=== PATIENT | female | born 1990 | race Caucasian/White ===

== ENCOUNTER 2018-07-23 13:43 | Emergency (ER) | END 2018-07-23 19:34 | disposition home or self-care (01) ==

== ENCOUNTER 2018-11-22 06:29 | Emergency (ER) | payer MEDICAID ==
[~2018-11-22] VITALS: Ht 157.5 cm; Wt 76.9 kg
[~2018-11-22 06:29] MED LIST: CEPH-443 PO; FERR325C PO; IBUP-1542 PO
[2018-11-22 06:35] VITALS: BP 156/91; PULSE 109; RESP 24; Ht 157.5 cm; Wt 76.9 kg
[2018-11-22] MEDS ORDERED: HYDROmorphONE 1 MG/ML SYG IV STA (07:28)
[2018-11-22] MEDS ORDERED: ONDANSETRON 4 MG INJ IV STA (07:28)
--- NOTE | 2018-11-22 07:29 | ERD ---
ER Documentation Chief Complaint Chief Complaint Pt reports gallbladder pain after spicey food HPI This is a 28-year-old female has a history of gallstones is complaining of a gallstone attack. She states that about 2 hours ago she developed some right upper quadrant pain that is described as crampy with radiation to the right alvarado k. She says this is exactly like prior gallstone intact has had many times before. She is nauseated but no vomiting and diarrhea no chest pain or shortness of breath ROS All systems reviewed and are negative except as per history of present illness. Medications Home Meds Discontinued Reported Medications Ferrous Sulfate (Iron) 325 Mg Capsr, 325 MG PO TID 04/09/12 Discontinued Scripts Ibuprofen* (Motrin*) 600 Mg Tab, 600 MG PO Q6, #15 TAB Prov:DONNA VELA MD 07/23/18 Cephalexin* (Keflex*) 500 Mg Capsule, 500 MG PO QID for 5 Days, CAP Prov:DONNA VELA MD 07/23/18 Allergies Allergies: Coded Allergies: No Known Drug Allergy (Verified Allergy, Unknown, NKDA, 11/22/18) PMhx/Soc History of Surgery: Yes (TUBAL LIGATION/GB) Anesthesia Reaction: No Hx Neurological Disorder: No Hx Respiratory Disorders: Yes (ASTHMA) Hx Cardiac Disorders: No Hx Psychiatric Problems: No Hx Miscellaneous Medical Probl: No Hx Alcohol Use: Yes (occasional) Hx Substance Use: No Hx Tobacco Use: No FmHx Family History: No coronary disease Physical Exam Vitals Vital Signs Date Temp Pulse Resp B/P (MAP) Pulse Ox O2 O2 Flow FiO2 Time Delivery Rate 11/22/18 98.3 109 24 156/91 100 06:35 (112) Physical Exam Const: Well-developed, well-nourished Head: Atraumatic, normocephalic Eyes: Normal Conjunctiva, PERRLA, EOMI, normal sclera, no nystagmus ENT: Normal External Ears, Nose and Mouth, moist mucus membranes. Neck: Full range of motion. No meningismus, no lymphadenopathy. Resp: Clear to auscultation bilaterally, no wheezing, rhonchi, rales Cardio: Regular rate and rhythm, no murmurs, S1 S2 present Abd: Soft, mild to moderate right upper quadrant tenderness, non distended. Normal bowel sounds, no guarding or rebound, no pulsitile abdominal masses or bruits Skin: No petechiae or rashes, no ecchymosis , no maculopapular rash Back: No midline or flank tenderness Ext: No cyanosis, or edema, FROM x 4, normal inspection, neurovascularly intact x 4 Neur: Awake and alert, STR 5/5 x 4, sensation intact x 4, no focal findings, cerebellum intact Psych: Normal Mood and Affect Result Diagram: 11/22/18 0740 11/22/18 0740 Results 24 hrs Laboratory Tests Test 11/22/18 06:56 11/22/18 07:40 POC Beta HCG, Qualitative NEGATIVE White Blood Count 9.9 10^3/ul Red Blood Count 4.08 10^6/ul Hemoglobin 11.6 g/dl Hematocrit 36.6 % Mean Corpuscular Volume 89.7 fl Mean Corpuscular Hemoglobin 28.4 pg Mean Corpuscular Hemoglobin Concent 31.7 g/dl Red Cell Distribution Width 13.4 % Platelet Count 347 10^3/UL Mean Platelet Volume 10.0 fl Immature Granulocytes % 0.300 % Neutrophils % 76.4 % Lymphocytes % 14.0 % Monocytes % 7.3 % Eosinophils % 1.6 % Basophils % 0.4 % Nucleated Red Blood Cells % 0.0 /100WBC Immature Granulocytes # 0.030 10^3/ul Neutrophils # 7.6 10^3/ul Lymphocytes # 1.4 10^3/ul Monocytes # 0.7 10^3/ul Eosinophils # 0.2 10^3/ul Basophils # 0.0 10^3/ul Nucleated Red Blood Cells # 0.0 10^3/ul Sodium Level 140 mmol/L Potassium Level 4.0 mmol/L Chloride Level 108 mmol/L Carbon Dioxide Level 23 mmol/L Anion Gap 9 Blood Urea Nitrogen 18 mg/dl Creatinine 0.63 mg/dl Est Glomerular Filtrat Rate mL/min > 60 mL/min Glucose Level 95 mg/dl Calcium Level 9.3 mg/dl Total Bilirubin 0.7 mg/dl Direct Bilirubin 0.00 mg/dl Indirect Bilirubin 0.7 mg/dl Aspartate Amino Transf (AST/SGOT) 16 IU/L Alanine Aminotransferase (ALT/SGPT) 16 IU/L Alkaline Phosphatase 71 IU/L Total Protein 7.8 g/dl Albumin 4.1 g/dl Globulin 3.70 g/dl Albumin/Globulin Ratio 1.10 Lipase 118 U/L Beta HCG, Quantitative < 2.4 mIU/ml Current Medications Medications Dose Sig/Jignesh Start Time Status Last (Trade) Ordered Route PRN Stop Time Admin Dose Reason Admin 1 mg ONCE STAT 11/22/18 DC 11/22/18 Hydromorphone IV 07:28 11/22/18 07:40 HCl 07:30 (Dilaudid) Ondansetron 4 mg ONCE STAT 11/22/18 DC 11/22/18 HCl (Zofran IV 07:28 11/22/18 07:40 Inj) 07:30 Ondansetron 4 mg STK-MED 11/22/18 DC HCl (Zofran ONCE ODT 07:37 11/22/18 Odt) 07:38 Procedures/MDM Patient: FLORIN MCMULLEN : 1990 Age: 28 Sex: F MR #: [id number] DOS: 11/22/18 0728 Ordering MD: BEULAH MORGAN DO Location: E/R Room/Bed: PROCEDURE: Ultrasound gallbladder CLINICAL INDICATION: abdominal pain TECHNIQUE: Subramanian scale, color flow and Doppler ultrasound images of the abdomen. COMPARISON: None FINDINGS: Pancreas: The head and body of the pancreas are unremarkable. Tail is obscured by shadowing bowel gas. Liver: Liver demonstrates normal size and echotexture. No parenchymal lesions are identified. Normal directional flow toward the liver is demonstrated in the main portal vein. Gallbladder: Not visualized. Biliary system: No significant dilatation of the intrahepatic or extrahepatic biliary system. Common bile duct measures 5 mm. Right Kidney: Measures 11.4 cm in length. No hydronephrosis, intrarenal calcification or parenchymal lesion. No visible perinephric fluid. Additional findings: None IMPRESSION: 1. The gallbladder is not visualized, question previous cholecystectomy. 2. Otherwise unremarkable ultrasound of the right upper abdomen. RPTAT: [facility] Physician Lelo Date Time Electronically viewed and signed by Physician Lelo on 11/22/2018 08:21 xB/ CC: BEULAH MORGAN DO [id number] Patient's pain is resolved after some pain meds and fluids. The patient is having some biliary colic symptoms she told me that she still had her gallbladder however is not seen on sonogram. She is got possibly drug-seeking behavior. Patient feels much better at this time, and vital signs are normal, symptoms have improved. I did give strict instructions to return to the ED if symptoms continue or worsen, patient will otherwise follow-up with primary care physician. Patient understood instructions and agreed to plan. Disclaimer: Inadvertent spelling and grammatical errors are likely due to EHR/dictation software use and do not reflect on the overall quality of patient care. Also, please note that the electronic time recorded on this note does not necessarily reflect the actual time of the patient encounter. Departure Diagnosis: Primary Impression: Abdominal pain Abdominal location: generalized Qualified Codes: R10.84 - Generalized abdominal pain Condition: Stable BEULAH MORGAN DO Nov 22, 2018 07:29
[2018-11-22] MEDS ORDERED: ONDANSETRON (ODT) 4 MG TAB ODT ONE (07:37)
[2018-11-22] MEDS ORDERED: HYDR-3980 PO (08:58)
[2018-11-22] MEDS ORDERED: DICY10CA40 PO (08:58)
== END 2018-11-22 09:32 | disposition home or self-care (01) ==
LOC: E/R 06:29
DX: R10.84 Generalized abdominal pain (principal); J45.909 Unspecified asthma, uncomplicated; R11.0 Nausea
CPT/HCPCS: 36415; 76705; 80053; 81025; 83690; 84702; 85025; 96374; 96375; J1170; J2405; Z7502; Z7610

== ENCOUNTER 2019-01-30 22:22 | Emergency (ER) | payer SELFPAY ==
[~2019-01-30] VITALS: Ht 157.5 cm; Wt 137.0 kg
[~2019-01-30 22:22] MED LIST changes: -CEPH-443 PO; +DICY10CA40 PO; -FERR325C PO; +HYDR-3980 PO; -IBUP-1542 PO
[2019-01-30 22:29] VITALS: BP 137/82; PULSE 110; RESP 20; Ht 157.5 cm; Wt 137.0 kg
== END 2019-01-31 00:02 | disposition left against medical advice (07) ==
LOC: FTE 22:22
DX: Z53.21 Procedure and treatment not carried out due to patient leaving prior to being seen by health care provider (principal)

== ENCOUNTER 2019-04-16 02:38 | Emergency (ER) | payer OTHER ==
[~2019-04-16] VITALS: Ht 157.5 cm; Wt 76.8 kg
[~2019-04-16 02:38] MED LIST changes: +ACET500C5 PO; +PREN-93 PO
[2019-04-16 02:47] VITALS: Ht 157.5 cm; Wt 76.8 kg
[2019-04-16 04:08] VITALS: BP 128/78; PULSE 70; RESP 16
== END 2019-04-16 04:09 | disposition home or self-care (01) ==
LOC: FTE 02:38
DX: O99.611 Diseases of the digestive system complicating pregnancy, first trimester (principal); K59.00 Constipation, unspecified; O99.511 Diseases of the respiratory system complicating pregnancy, first trimester; J45.909 Unspecified asthma, uncomplicated; Z3A.10 10 weeks gestation of pregnancy
CPT/HCPCS: 99282

== ENCOUNTER 2019-05-07 01:37 | Emergency (ER) | payer SELFPAY ==
[~2019-05-07] VITALS: Ht 157.5 cm; Wt 78.2 kg
[~2019-05-07 01:37] MED LIST changes: +IBUP800T48 PO; +MONT10TA21 PO
[2019-05-07 01:38] VITALS: BP 125/72; PULSE 125; RESP 20; Ht 157.5 cm; Wt 78.2 kg
== END 2019-05-07 03:44 | disposition left against medical advice (07) ==
LOC: FTE 01:37
DX: Z53.21 Procedure and treatment not carried out due to patient leaving prior to being seen by health care provider (principal)